=== PATIENT | female | born 1970 | race Hispanic/Latino ===

== ENCOUNTER 2023-11-20 01:59 | Emergency (ER) | payer BC ==
[~2023-11-20] VITALS: Ht 149.9 cm; Wt 88.0 kg
[2023-11-20 02:31] LABS: RAPID GROUP A STREP negative (NEGATIVE)
[2023-11-20 02:38] LABS: SARS-CoV-2, RNA, NAAT NEGATIVE SARS CoV-2 (NEGATIVE)
[2023-11-20 02:42] LABS: INFLUENZA TYPE A Negative For Type A (NEGATIVE); INFLUENZA TYPE B Negative For Type B (NEGATIVE)
[2023-11-20 03:56] LABS: BASOPHILS # (AUTO) 0.11 K/uL (0.00-0.20); EOSINOPHILS % (AUTO) 2.7 % (0.0-8.0); HEMATOCRIT 37.4 % (36-48); IMMATURE GRANULOCYTE ABSOLUTE 0.03 K/uL (0-1); LYMPHOCYTES # (AUTO) 4.3 K/uL (1.0-4.8); LYMPHOCYTES % (AUTO) 37.9 % (21.0-51.0); MEAN CORPUSCULAR HEMOGLOBIN 28.1 pg (27.0-33.0); MEAN CORPUSCULAR HGB CONC 32.9 g/dL (32.0-36.0); MEAN CORPUSCULAR VOLUME 85.4 fL (79-99); MONOCYTES # (AUTO) 0.8 K/uL (0.1-1.0); MONOCYTES % (AUTO) 6.7 % (3.0-13.0); NEUTROPHILS # (AUTO) 5.8 K/uL (1.8-7.7); NEUTROPHILS % (AUTO) 51.4 % (40.0-77.0); PLATELET COUNT (AUTO) 273 K/uL (130-400); RED BLOOD CELL COUNT(AUTO) 4.38 MIL/uL (4.00-5.50); RED CELL DISTRIBUTION WIDTH 14.6 % (11.0-15.5); WHITE BLOOD COUNT (AUTO) 11.3 K/uL (4.8-10.8)
[2023-11-20 04:01] LABS: CREATININE 0.6 mg/dL (0.5-1.5); POTASSIUM 3.7 mmol/L (3.5-5.1)
[2023-11-20 04:06] LABS: ALBUMIN 3.1 g/dL (3.5-5.0); BILIRUBIN,TOTAL 0.2 mg/dL (0.2-1.0); TOTAL PROTEIN, SERUM 6.7 g/dL (6.0-8.3)
[2023-11-20] MEDS ORDERED: IOHEXOL-350 75 ML VIAL IV ONE (05:14)
[2023-11-20 05:21] LABS: B-TYPE NATRIURETIC PEPTIDE < 5 pg/mL (0-100)
[2023-11-20 06:26] VITALS: BP 132/78; PULSE 81; RESP 18; O2SAT 98
[2023-11-20] MEDS ORDERED: PRED20TA3 PO (07:09)
[2023-11-20] MEDS ORDERED: ALBU90AE2 IH (07:09)
[2023-11-20] MEDS ORDERED: GUAI1TBM19 PO (07:09)
== END 2023-11-20 07:19 | disposition home or self-care (01) ==
LOC: EDH 01:59
DX: J20.9 Acute bronchitis, unspecified (principal); R07.89 Other chest pain; Z20.822 Contact with and (suspected) exposure to COVID-19; Z98.890 Other specified postprocedural states
CPT/HCPCS: 99284; 71270; 71045; 87635; 80053; 83880; 85025; 85378; 87880; 87804 ×2; 36415; 93005; C9803; Q9967